=== PATIENT | male | born 1965 | race Caucasian/White ===

== ENCOUNTER 2016-08-03 07:37 | Day surgery (SDC) | payer BC ==
[2016-08-03] MEDS ORDERED: Propofol 200 MG/20 ML SDV ONE ×2 (07:55→08:54)
[2016-08-03] MEDS ORDERED: fentaNYL 100 MCG/2 ML SDV ONE (07:55)
[2016-08-03] MEDS ORDERED: Midazolam 1 MG/ML 2 ML SDV ONE (07:55)
[2016-08-03] MEDS ORDERED: Lactated Ringers 1,000 ML IV SCH (08:00)
[2016-08-03 10:05] VITALS: BP 129/83
--- NOTE | 2016-08-04 07:54 | OR ---
DATE OF PROCEDURE: 08/03/2016 POSTOPERATIVE DIAGNOSIS: Colon cancer screening. POSTOPERATIVE DIAGNOSES: Diverticulosis and poor colonoscopy prep. PROCEDURE: Colonoscopy to the cecum. ANESTHESIA: IV anesthesia with monitored anesthesia care. INDICATION: This 51-year-old white male is referred for a colonoscopy for colon cancer screening. He has never had a colonoscopic exam. I counseled him for the procedure including risks and alternatives, and he gave his informed consent to proceed. PROCEDURE IN DETAILS: The patient was placed in the left lateral decubitus position. IV anesthesia was administered by the Anesthesia Service. Time-out was held. A rectal exam was performed, which was unremarkable. The flexible video Olympus colonoscope was introduced through his anus, up his rectum, and out his colon all way to the cecum. There was a lot of solid stool and more proximally loose stool encountered. We aspirated a lot of the loose stool but the solid stool we could not. Once the cecum was reached, the scope was slowly withdrawn examining the mucosa throughout. No mucosal abnormalities noted until we reached the left colon. Here, we saw a very few scattered diverticula. There was no bleeding or inflammation associated with them. The scope was retroflexed in the rectum with the distal rectum appearing unremarkable. The scope was straightened and removed. He tolerated the procedure well. Emre Saavedra MD /[id number] [email or web address]
== END 2016-08-03 10:17 | disposition home or self-care (01) ==
LOC: JP.SDS 07:37
PROVIDERS: ATTEND Surgery
DX: Z12.11 Encounter for screening for malignant neoplasm of colon (principal); K57.30 Diverticulosis of large intestine without perforation or abscess without bleeding; I10 Essential (primary) hypertension
CPT/HCPCS: 45378; J2250; J2704; J3010; J7120